=== PATIENT | female | born 1960 | race Caucasian/White ===

== ENCOUNTER → 2016-10-15 | Outpatient (CLI) | payer BC | LOC: LAB 14:58 | PROVIDERS: ATTEND Family Medicine | DX: M12.88 Other specific arthropathies, not elsewhere classified, other specified site (principal); E13.65 Other specified diabetes mellitus with hyperglycemia; E03.4 Atrophy of thyroid (acquired) | CPT/HCPCS: 36415; 71020; 83036; 84436; 84443 ==

== ENCOUNTER → 2016-12-17 | Outpatient (CLI) | payer BC | LOC: LAB 10:06 | PROVIDERS: ATTEND Family Medicine | DX: Z00.00 Encounter for general adult medical examination without abnormal findings (principal) | CPT/HCPCS: 36415; 80061 ==